=== PATIENT | male | born 1965 | race Caucasian/White ===

== ENCOUNTER → 2017-05-30 | Outpatient (CLI) | payer BC ==
[~2017-05-30] MED LIST: FLON1SPR; OMEP20CA3 PO; SALI0.6523
--- NOTE | 2017-06-01 18:18 | ECGEPIP ---
Stationary ECG Study [facility] Test Date: 2017-05-30 Pat Name: JOSESITO BISWAS Department: Room: - Gender: M Golf Instructor: NANCY : 1965 Requested By: ZAK Breen Order Number: [id number] Reading MD: Abdelrahman Mcneill Measurements Intervals [place] Rate: 82 P: 23 VT: 186 QRS: -22 QRSD: 98 T: 5 QT: 355 QTc: 417 Interpretive Statements SINUS RHYTHM BORDERLINE LEFT AXIS DEVIATION NO PRIOR Electronically Signed On 06-01-2017 18:18:34 EST by Abdelrahman Mcneill
== END ==
LOC: M EKG 08:39
PROVIDERS: ATTEND Anesthesiology
DX: Z01.818 Encounter for other preprocedural examination (principal); R94.31 Abnormal electrocardiogram [ECG] [EKG]